=== PATIENT | female | born 1975 | race Caucasian/White ===

== ENCOUNTER → 2017-06-08 | Outpatient (CLI) | payer BC ==
--- NOTE | 2017-06-08 13:43 | KCIC ---
EXAM: Lumbar spine MRI without contrast. HISTORY: Degenerative disc disease. Leg pain. TECHNIQUE: Multiplanar, multisequence magnetic resonance imaging of the lumbar spine was performed without contrast. COMPARISON: None. FINDINGS: There is minimal anterolisthesis of L4 on L5 and L5 on S1. The vertebral bodies normal height. There are several vertebral body hemangiomas. There is mild diffusely decreased T1 marrow signal intensity. This is most commonly due to anemia in female patients of this age. The conus terminates at L1. There are minimal disc bulges and there is minimal endplate remodeling at the lower lumbar levels. There is mild facet arthropathy at L4-L5. There is no significant foraminal or central canal stenosis. There is slight edema within the bilateral L4 and L5 pedicles, likely degenerative or due to a slight stress reaction. IMPRESSION: 1. Minimal to mild degenerative change of the lower lumbar spine. There is no significant stenosis. 2. Slight edema within the bilateral L4 and L5 pedicles, degenerative or due to a slight stress reaction. 3. Mild diffusely decreased T1 marrow signal intensity. This is most commonly due to anemia in female patients of this age. Electronically signed by: Adenike Mccormack MD (06/08/2017 1:40 PM) [id number]
== END | disposition home or self-care (01) ==
LOC: KCIC MRI 12:13
PROVIDERS: ATTEND Family Medicine
DX: M51.36 Other intervertebral disc degeneration, lumbar region (principal); M47.896 Other spondylosis, lumbar region
CPT/HCPCS: 72148